=== PATIENT | female | born 1955 | race Caucasian/White ===

== ENCOUNTER 2017-04-02 20:08 | Emergency (ER) | payer MEDICAID, OTHER ==
[~2017-04-02] VITALS: Ht 157.5 cm; Wt 68.4 kg
[2017-04-02 20:15] VITALS: BP 152/81
[2017-04-02] MEDS ORDERED: ACETAMINOPHEN 325 MG TABLET PO ONE (21:30)
[2017-04-02] MEDS ORDERED: ACETAMINOPHEN 500 MG TABLET ONE (21:59)
[2017-04-02] MEDS ORDERED: IBUPROFEN 200 MG TABLET ONE (21:59)
[2017-04-02] MEDS ORDERED: IBUPROFEN 200 MG TABLET PO ONE (22:00)
== END 2017-04-02 22:37 | disposition home or self-care (01) ==
LOC: ED 22:31
DX: S62.604A Fracture of unspecified phalanx of right ring finger, initial encounter for closed fracture (principal); W19.XXXA Unspecified fall, initial encounter; Y93.89 Activity, other specified; Y92.828 Other wilderness area as the place of occurrence of the external cause; Y99.8 Other external cause status
CPT/HCPCS: 29130

== ENCOUNTER 2019-02-18 04:47 | Emergency (ER) | payer MEDICAID, OTHER ==
[~2019-02-18] VITALS: Ht 157.5 cm; Wt 75.1 kg
[2019-02-18] MEDS ORDERED: ALPR1TAB2 PO (04:51)
[2019-02-18] MEDS ORDERED: DEXAMETHASONE 4 MG/ML, 1ML ONE (05:55)
[2019-02-18] MEDS ORDERED: DEXAMETHASONE 4 MG/ML, 1ML PO ONE (06:00)
[2019-02-18 06:23] VITALS: BP 133/81
== END 2019-02-18 06:59 | disposition home or self-care (01) ==
LOC: ED 06:57
DX: J02.8 Acute pharyngitis due to other specified organisms (principal)
CPT/HCPCS: 70360; 87081; 87880; 99284; J1100

== ENCOUNTER 2019-04-26 09:10 | Emergency (ER) | payer MEDICAID ==
[~2019-04-26] VITALS: Ht 157.5 cm; Wt 74.4 kg
[~2019-04-26 09:10] MED LIST: ALPR1TAB2 PO
[2019-04-26 09:15] VITALS: BP 152/74
--- NOTE | 2019-04-26 09:41 | NUR ---
PT REFUSES TO COOPERATIVE WITH QUESTIONS AND IS VERY HOSTILE. PT REFUSES VS. PT IS HERE "FOR TOOTH PAIN FOR 2 DAYS". PER PT REPORT, SHE HAS NOT CALLED OR SEEN A DENTIST YET. MD HAS ROUNDED AND POC IS DISCHARGE.
--- NOTE | 2019-04-26 10:18 | NUR ---
Patient given discharge instructions and they have confirmed that they understand the instructions. Patient ambulatory with steady gait. Pt given dental referrals. Pt signed and reported that she understood the controlled sub contract. Pt denied further needs.
== END 2019-04-26 10:17 | disposition home or self-care (01) ==
LOC: ED 09:59
DX: K08.89 Other specified disorders of teeth and supporting structures (principal)
CPT/HCPCS: 99283

== ENCOUNTER 2019-09-17 13:04 | Emergency (ER) | payer MEDICAID, MEDICARE ==
--- NOTE | 2019-09-17 13:22 | NUR ---
[email or web address]
--- NOTE | 2019-09-17 13:32 | NUR ---
[id number]
--- NOTE | 2019-09-17 13:38 | NUR ---
PT SIGNED REQUEST FOR DISCHARGE FORM
== END 2019-09-17 13:41 | disposition left against medical advice (07) ==
LOC: ED 13:25
DX: R68.89 Other general symptoms and signs (principal); Z53.21 Procedure and treatment not carried out due to patient leaving prior to being seen by health care provider

== ENCOUNTER 2021-04-23 05:36 | Emergency (ER) | payer MEDICARE ==
[~2021-04-23] VITALS: Ht 157.5 cm; Wt 75.7 kg
[2021-04-23 05:38] VITALS: BP 135/92
--- NOTE | 2021-04-23 06:17 | NUR ---
Attempted ear irrigation unsuccessful, several curettes and reeves extractor at bedside. Informed dr michelle.
== END 2021-04-23 06:39 | disposition home or self-care (01) ==
LOC: ED 06:30
DX: T16.1XXA Foreign body in right ear, initial encounter (principal); X58.XXXA Exposure to other specified factors, initial encounter; Y93.89 Activity, other specified; Y92.89 Other specified places as the place of occurrence of the external cause; Y99.8 Other external cause status
CPT/HCPCS: 69200; 99284

== ENCOUNTER 2021-06-10 07:39 | Emergency (ER) | payer MEDICARE, MEDICAID ==
[~2021-06-10] VITALS: Ht 157.5 cm; Wt 74.3 kg
[2021-06-10] MEDS ORDERED: BENZONATATE 100 MG CAPSULE PO ONE (08:00)
[2021-06-10] MEDS ORDERED: BENZONATATE 100 MG CAPSULE ONE ×2 (08:09→08:13)
--- NOTE | 2021-06-10 08:22 | NUR ---
PCXR COMPLETED. PT MEDICATED PER ERP ORDER. CALL LIGHT WITHIN REACH.
[2021-06-10 08:39] VITALS: BP 141/75
--- NOTE | 2021-06-10 08:39 | NUR ---
CXR RESULTS BACK, PT FOR RECHECK.
== END 2021-06-10 09:33 | disposition home or self-care (01) ==
LOC: ED 09:32
DX: J18.1 Lobar pneumonia, unspecified organism (principal)
CPT/HCPCS: 71045; 99283

== ENCOUNTER 2021-06-22 05:40 | Emergency (ER) | payer MEDICARE, MEDICAID ==
[~2021-06-22] VITALS: Ht 157.5 cm; Wt 74.0 kg
--- NOTE | 2021-06-22 05:58 | NUR ---
PATIENT REPORTS SHE WAS IN THE ED OVER A WEEK AGO, WAS GIVEN ANTIBIOTICS, REPORTS FINISHING THE ANTIBIOTICS PRESCRIBED. PATIENT STATES SHE IS "FEELING WORSE". AND THAT ONE MONTH AGO SHE HAD "SOMETHING IN HER EAR" BUT SHE "WAS ABLE TO PULL IT OUT" AND SHE NOW BELIEVES SHE "HAS AN EAR INFECTION"
[2021-06-22] MEDS ORDERED: ACETAMINOPHEN 500 MG TABLET ONE (06:09)
[2021-06-22] MEDS ORDERED: ACETAMINOPHEN 500 MG TABLET PO ONE (06:30)
[2021-06-22 06:50] LABS: BASOPHILS % (AUTO) 0 % (0-1); EOSINOPHILS % (AUTO) 3 % (1-7); LYMPHOCYTES % (AUTO) 26 % (22-44); MEAN CORPUSCULAR HGB CONC 34.6 g/dL (32.4-35.8); MEAN PLATELET VOLUME 8.9 fL (7.4-10.4); MONOCYTES % (AUTO) 7 % (2-9); NEUTROPHILS % (AUTO) 64 % (42-75); PLATELET COUNT 235 x10^3/uL (130-400); RED BLOOD COUNT 4.37 x10^6/uL (3.82-5.3); RED CELL DISTRIBUTION WIDTH 12.8 % (9.6-15.2)
[2021-06-22 07:02] LABS: ALBUMIN 3.4 g/dL (3.4-5.0); ANION GAP 6 mmol/L (5-15); CALCIUM 9.2 mg/dL (8.5-10.1); CHLORIDE 107 mmol/L (98-107); CREATININE 0.81 mg/dL (0.55-1.02)
--- NOTE | 2021-06-22 07:02 | NUR ---
TOOK REPORT FROM Julienne Grimaldo RN, ASSUME CARE AT THIS TIME.
[2021-06-22 07:43] VITALS: BP 124/74
== END 2021-06-22 07:44 | disposition home or self-care (01) ==
LOC: ED 06:13
DX: J18.9 Pneumonia, unspecified organism (principal); Z20.822 Contact with and (suspected) exposure to COVID-19; B34.9 Viral infection, unspecified; F50.9 Eating disorder, unspecified
CPT/HCPCS: 36415; 71045; 80048; 82040; 85025; 99284; U0003; U0005